=== PATIENT | male | born 1965 | race Caucasian/White ===

== ENCOUNTER → 2016-09-30 | Outpatient (CLI) | payer BC ==
--- NOTE | 2016-09-30 12:25 | RAD ---
Right knee with patella, 3 views, 09/30/2016: History: Chronic pain The knee joint space is well-preserved. There is minimal spurring at the patellofemoral articulation. No fracture or dislocation is identified. No significant joint effusion is seen. IMPRESSION: 1. Minimal patellofemoral spurring. 2. No acute abnormality is detected.
== END | disposition home or self-care (01) ==
LOC: DXRAD 08:44
PROVIDERS: ATTEND Orthopaedic Surgery
DX: M25.561 Pain in right knee (principal)
CPT/HCPCS: 73564